=== PATIENT | female | born 1935 | race Caucasian/White ===

== ENCOUNTER 2016-09-18 21:38 | Emergency (ER) | payer MEDICARE ==
[~2016-09-18] VITALS: Ht 170.2 cm; Wt 57.6 kg
[~2016-09-18 21:38] MED LIST: ACID REDUCER20 MG PO; ALBUTEROL1.25 MG/3 INH; ALL DAY ALLERGY10 M3 PO; CEPHALEXIN500 MG PO; CIPRO500 MG PO; DITROPAN XL10 MG PO; DOXYCYCLINE HY100 M3 PO; DURAGESIC1 EAC4 TD; FAMOTIDINE10 MG PO; FLOMAX0.4 MG PO; MACROBID 100 M100 MG PO; NEXIUM20 MG PO; OMEPRAZOLE20 MG PO; OXYCODON-ACETA1 EAC2 PO; SYNTHROID112 MCG PO; SYNTHROID25 MCG PO; TUMS200 MG PO; ULTRAM50 MG PO; VITAMIN D5000 UNI1 PO; ZANTAC150 MG PO; [UNRECOGNIZED DRUG - OTHER]
[2016-09-18] MEDS ORDERED: OMEPRAZOLE20 MG PO (21:52)
[2016-09-18] MEDS ORDERED: VITAMIN D1000 UNI1 PO (21:53)
--- NOTE | 2016-09-19 14:37 | EKG ---
[facility] [address] [place] [address] Signed Normal sinus rhythm Possible Inferior infarct (cited on or before 20-JUL-2016) Cannot rule out Anterior infarct , age undetermined Abnormal ECG When compared with ECG of 20-JUL-2016 14:42, Minimal criteria for Anterior infarct are now present Confirmed by DIAMOND SANTIAGO MD ([id number]) on 09/19/2016 2:37:03 PM Electronically Signed By: DIAMOND SANTIAGO MD 09/19/16 1437 PATIENT NAME: CASI CHAPMAN Electrocardiogram DATE OF : 39 PHYSICIAN: DIAMOND SANTIAGO MD REPORT #: [id number] REPORT IS CONFIDENTIAL AND NOT TO BE RELEASED WITHOUT AUTHORIZATION
== END 2016-09-18 23:16 | disposition home or self-care (01) ==
LOC: ED 21:38
DX: C78.00 Secondary malignant neoplasm of unspecified lung (principal); Z85.3 Personal history of malignant neoplasm of breast; Z87.891 Personal history of nicotine dependence; Z90.11 Acquired absence of right breast and nipple; Z90.710 Acquired absence of both cervix and uterus; Z88.2 Allergy status to sulfonamides; Z79.899 Other long term (current) drug therapy
CPT/HCPCS: 71010; 80053; 83735; 84484; 85025; 93005; 93010; 94640; 99284

== ENCOUNTER 2016-10-01 13:29 | Emergency (ER) | payer MEDICARE ==
[~2016-10-01] VITALS: Ht 170.2 cm; Wt 57.1 kg
[~2016-10-01 13:29] MED LIST changes: +VITAMIN D1000 UNI1 PO
[2016-10-01] MEDS ORDERED: XANAX0.25 MG PO (14:57)
--- NOTE | 2016-10-02 14:23 | EKG ---
[facility] [address] [facility] [place] [address] Signed Sinus rhythm with premature supraventricular complexes Inferior infarct (cited on or before 20-JUL-2016) Anterolateral infarct (cited on or before 20-JUL-2016) Abnormal ECG When compared with ECG of 18-SEP-2016 21:57, premature supraventricular complexes are now present Confirmed by DIAMOND SANTIAGO MD ([id number]) on 10/02/2016 2:23:47 PM Electronically Signed By: DIAMOND SANTIAGO MD 10/02/16 1423 PATIENT NAME: CASI CHAPMAN Electrocardiogram DATE OF : 39 PHYSICIAN: DIAMOND SANTIAGO MD REPORT #: [id number] REPORT IS CONFIDENTIAL AND NOT TO BE RELEASED WITHOUT AUTHORIZATION
== END 2016-10-01 15:09 | disposition home or self-care (01) ==
LOC: ED 13:29
DX: R07.2 Precordial pain (principal); F41.9 Anxiety disorder, unspecified; Z88.2 Allergy status to sulfonamides; Z85.3 Personal history of malignant neoplasm of breast; Z85.118 Personal history of other malignant neoplasm of bronchus and lung; Z87.891 Personal history of nicotine dependence; Z90.710 Acquired absence of both cervix and uterus; Z90.11 Acquired absence of right breast and nipple; Z79.899 Other long term (current) drug therapy
CPT/HCPCS: 71010; 80048; 84484; 85025; 93005; 93010; 96374; 96375; 99284; J2405

== ENCOUNTER 2016-10-21 13:53 | Emergency (ER) | payer MEDICARE ==
[~2016-10-21] VITALS: Ht 170.2 cm; Wt 56.2 kg
[~2016-10-21 13:53] MED LIST changes: +XANAX0.25 MG PO
[2016-10-21] MEDS ORDERED: PREDNISONE20 MG PO (16:17)
--- NOTE | 2016-10-21 20:23 | EKG ---
[facility] [address] [place] [address] Signed Normal sinus rhythm Possible Inferior infarct (cited on or before 20-JUL-2016) Anterior infarct (cited on or before 18-SEP-2016) Abnormal ECG When compared with ECG of 01-OCT-2016 13:41, premature supraventricular complexes are no longer present Confirmed by ANUP GUILLAUME MD ([id number]) on 10/21/2016 8:23:28 PM Electronically Signed By: ANUP GUILLAUME MD 10/21/162022 PATIENT NAME: CASI CHAPMAN Electrocardiogram DATE OF : 39 PHYSICIAN: ANUP GUILLAUME MD REPORT #: [id number] REPORT IS CONFIDENTIAL AND NOT TO BE RELEASED WITHOUT AUTHORIZATION
== END 2016-10-21 16:26 | disposition home or self-care (01) ==
LOC: ED 13:53
DX: J44.1 Chronic obstructive pulmonary disease with (acute) exacerbation (principal); C50.919 Malignant neoplasm of unspecified site of unspecified female breast; C34.90 Malignant neoplasm of unspecified part of unspecified bronchus or lung; Z87.891 Personal history of nicotine dependence; Z90.710 Acquired absence of both cervix and uterus; Z88.2 Allergy status to sulfonamides; Z79.899 Other long term (current) drug therapy
CPT/HCPCS: 71020; 80053; 83735; 84484; 85025; 93005; 93010; 94640; 96374; 99284; J2930

== ENCOUNTER 2016-10-30 07:33 | Emergency (ER) | payer MEDICARE ==
[~2016-10-30] VITALS: Ht 170.2 cm; Wt 54.0 kg
[~2016-10-30 07:33] MED LIST changes: +PREDNISONE20 MG PO
[2016-10-30] MEDS ORDERED: NORCO 7.5-3251 EACH PO (08:39)
== END 2016-10-30 09:28 | disposition home or self-care (01) ==
LOC: ED 07:33
DX: C34.90 Malignant neoplasm of unspecified part of unspecified bronchus or lung (principal); C79.9 Secondary malignant neoplasm of unspecified site; C50.919 Malignant neoplasm of unspecified site of unspecified female breast; G89.3 Neoplasm related pain (acute) (chronic); Z87.891 Personal history of nicotine dependence; Z90.710 Acquired absence of both cervix and uterus; Z88.2 Allergy status to sulfonamides; Z79.899 Other long term (current) drug therapy; Z79.52 Long term (current) use of systemic steroids
CPT/HCPCS: 71020; 96374; 99283; J1170; J7030

== ENCOUNTER 2016-11-06 18:55 | Emergency (ER) | payer MEDICARE ==
[~2016-11-06] VITALS: Ht 170.2 cm; Wt 54.0 kg
[~2016-11-06 18:55] MED LIST changes: +NORCO 7.5-3251 EACH PO
== END 2016-11-06 22:11 | disposition home or self-care (01) ==
LOC: ED 18:55
DX: K59.00 Constipation, unspecified (principal); C50.919 Malignant neoplasm of unspecified site of unspecified female breast; C34.90 Malignant neoplasm of unspecified part of unspecified bronchus or lung; Z87.891 Personal history of nicotine dependence; Z88.2 Allergy status to sulfonamides; Z79.891 Long term (current) use of opiate analgesic; Z79.899 Other long term (current) drug therapy
CPT/HCPCS: 74177; 80053; 81001; 83690; 85025; 96374; 96375; 99284; J1170; J2405; Q9967

== ENCOUNTER 2016-11-15 19:09 | Emergency (ER) | payer MEDICARE ==
[~2016-11-15] VITALS: Ht 170.2 cm; Wt 54.0 kg
[2016-11-15] MEDS ORDERED: STOOL SOFTENER100 M1 PO (19:20)
[2016-11-15] MEDS ORDERED: MEDROL4 M1 PO (21:17)
--- NOTE | 2016-11-17 17:18 | EKG ---
[facility] [address] [facility] [place] [address] Signed Normal sinus rhythm Anterior infarct (cited on or before 18-SEP-2016) Abnormal ECG When compared with ECG of 21-OCT-2016 14:03, No significant change was found Confirmed by DIAMOND ASNTIAGO MD ([id number]) on 11/17/2016 5:18:10 PM Electronically Signed By: DIAMOND SANTIAGO MD 11/17/16 1718 PATIENT NAME: CASI CHAPMAN Electrocardiogram DATE OF : 39 PHYSICIAN: DIAMOND SANTIAGO MD REPORT #: [id number] REPORT IS CONFIDENTIAL AND NOT TO BE RELEASED WITHOUT AUTHORIZATION
== END 2016-11-15 21:19 | disposition home or self-care (01) ==
LOC: ED 19:09
DX: C34.90 Malignant neoplasm of unspecified part of unspecified bronchus or lung (principal); C79.9 Secondary malignant neoplasm of unspecified site; Z85.3 Personal history of malignant neoplasm of breast; Z87.891 Personal history of nicotine dependence; Z90.710 Acquired absence of both cervix and uterus; Z90.11 Acquired absence of right breast and nipple; Z88.2 Allergy status to sulfonamides; Z79.899 Other long term (current) drug therapy
CPT/HCPCS: 71010; 80053; 83880; 84484; 85025; 93005; 93010; 94640; 96374; 99284; J2930

== ENCOUNTER 2016-11-29 07:47 | Emergency (ER) | payer MEDICARE ==
[~2016-11-29] VITALS: Ht 170.2 cm; Wt 53.1 kg
[~2016-11-29 07:47] MED LIST changes: +MEDROL4 M1 PO; +STOOL SOFTENER100 M1 PO
[2016-11-29] MEDS ORDERED: NORCO 7.5-3251 EACH PO (09:38)
[2016-11-29] MEDS ORDERED: IPRATROPIU0.2 MG/1 M INH (09:38)
--- NOTE | 2016-11-30 21:47 | EKG ---
[facility] [address] [facility] [place] [address] Signed Normal sinus rhythm Anterior infarct (cited on or before 18-SEP-2016) Abnormal ECG When compared with ECG of 15-NOV-2016 19:49, No significant change was found Confirmed by DIAMOND SANTIAGO MD ([id number]) on 11/30/2016 9:47:10 PM Electronically Signed By: DIAMOND SANTIAGO MD 11/30/16 2147 PATIENT NAME: CASI CHAPMAN Electrocardiogram DATE OF : 39 PHYSICIAN: DIAMOND SANTIAGO MD REPORT #: [id number] REPORT IS CONFIDENTIAL AND NOT TO BE RELEASED WITHOUT AUTHORIZATION
== END 2016-11-29 10:07 | disposition home or self-care (01) ==
LOC: ED 07:47
DX: R07.9 Chest pain, unspecified (principal); C34.90 Malignant neoplasm of unspecified part of unspecified bronchus or lung; Z76.0 Encounter for issue of repeat prescription; Z85.3 Personal history of malignant neoplasm of breast; Z90.11 Acquired absence of right breast and nipple; Z90.710 Acquired absence of both cervix and uterus; Z88.2 Allergy status to sulfonamides; Z98.890 Other specified postprocedural states; Z79.899 Other long term (current) drug therapy
CPT/HCPCS: 71010; 80053; 83880; 84484; 85025; 85610; 85730; 93005; 93010; 96374; 96375; 99284; J2270; J2405

== ENCOUNTER 2016-12-01 19:43 | Observation (INO) | payer MEDICARE ==
[~2016-12-01] VITALS: Ht 170.2 cm; Wt 55.9 kg
[~2016-12-01 19:43] MED LIST changes: +IPRATROPIU0.2 MG/1 M INH
--- NOTE | 2016-12-01 23:30 | NUR ---
81YR OLD WOMAN ADMITTED FROM ER VIA STRETCHER TO ROOM 119. PT IS ALERT, ORIENTED, ABLE TO SLIDE OVER ONTO BED WITH MINIMAL ASSIST. HOB UP 30 DEG FOR PT COMFORT, O2 2L/NC, SOB WITH MINIMAL EXHERTION, ORIENTED TO ROOM AND CALL LIGHT, WARM BLANKET FOR COMFORT. RATES PAIN 2/10 ATHTIS TIME. DENIES FURTHER NEEDS. ORDERS NOTED.
--- NOTE | 2016-12-02 01:00 | NUR ---
COMPLETED LR BOLUS. LR INFUSING @ 75ML/HR. SCHEDULED MEDS GIVEN. SBA INTO BATHROOM TO VOID 400ML DARK YELLOW URINE. RT IN AND GAVE NEB TREATMENT. PT RESTING QUIETLY IN BED NOW, CONT. TO BE SOB WITH EXHERTION, INSPIRATORY WHEEZES BILATERAL. CALL LIGHT IN EASY REACH. DENIES FURTHER NEEDS.
--- NOTE | 2016-12-02 03:18 | NUR ---
RESTING QUIETLY, RESP UNLABORED. O2 2L/NC. IVF PATENT. CALL LIGHT IN EASY REACH.
--- NOTE | 2016-12-02 05:06 | NUR ---
AWAKE USED CALL LIGHT FOR ASSISTANCE INTO BATHROOM TO VOID, CONT. TO BE SOB WITH EXERTION. RT IN TO GIVE NEB TREATMENT. IVF PATENT. CALL LIGHT IN EASY REACH. DENIES NAUSE OR NEED FOR PAIN MEDICATION.
--- NOTE | 2016-12-02 06:22 | NUR ---
PT AWAKE EARLY ASKING FOR A CUP OF COFFEE, AM CARES DONE WITH ASSISTANCE, SBA WITH O2 TO AMBULATE TO BATHROOM. SOB WITH MINIMAL EXHERTION, SLOW TO RECOVER. 02 2L/NC, PT CONT. TO DENY PAIN SINCE ADMISSION. FEELS BETTER AFTER NEBS BY RT. USING CALL LIGHT APPROP. PLEASANT LADY.
--- NOTE | 2016-12-02 06:33 | NUR ---
BREAKFAST ORDER TAKEN FROM PATIENT AND PLACED WITH KITCHEN.
--- NOTE | 2016-12-02 08:00 | NUR ---
PATIENT DRINKING MIRALAX, AAOX3. NO COMPLAINTS OF PAIN AT THIS TIME. FULL BODY ASSESMENT DONE. LUNG SOUNDS COURSE THROUGHOUT, PATIENT NOW GETTING NEB TX. COMPLAINTS OF FEELING ANXIOUS SECONDARY NOT BEING ABLE TO HAVE A BOWEL MOVEMENT. DISCUSSED POC WITH PATIENT, VERBALIZED UNDERSTANDING.
--- NOTE | 2016-12-02 10:00 | NUR ---
ASSISTED DR. SANTIAGO WITH BOWEL CARE. PATIENT IMPACTED. DISIMPACTION DIGITALLY PERFORMED AND ENEMA ADMINISTERED. BOWEL MOVEMENT NOTED. TOLERATING TREATMENT WELL.
[2016-12-02] MEDS ORDERED: XANAX0.25 MG PO (10:45)
[2016-12-02] MEDS ORDERED: IPRATROPIU0.2 MG/1 M INH (10:49)
[2016-12-02] MEDS ORDERED: IPRAT-ALBUT 0.5-3 ML INH (10:49)
--- NOTE | 2016-12-02 10:51 | NUR ---
MED REC COMPLETE WITH [facility] REFILL HISTORY.
[2016-12-02] MEDS ORDERED: MIRALAX17 GM PO (10:56)
[2016-12-02] MEDS ORDERED: SENOKOT8.6 MG PO (10:57)
[2016-12-02] MEDS ORDERED: MORPHINE S20 MG/5 ML PO (10:59)
--- NOTE | 2016-12-02 11:00 | NUR ---
PATIENT HAS HAD TWO BOWEL MOVMENTS SINCE SHE STARTED DRINKING BOWEL PREP. UP TO BSC, TOLERATED ACTIVITY. NOW REQUESTING MEDICATION FOR ANXIETY. NEW ORDER PER DR. SANTIAGO
--- NOTE | 2016-12-02 13:48 | NUR ---
PT SITTING IN BED WITH NASAL O2. SHE SHOOK MY HAND AND BEGAN TO TELL ME THAT SHE IS DYING-BUT THERE ARE SOME THINGS ON HER "BUCKET LIST" SHE STILL NEEDS TO ACCOMPLISH. SO SHE HAS DECIDED TO KEEP TAKING CHEMO TO BUY HERSELF MAYBE SOME MORE TIME. SHE WILL ALSO USE HOME HEALATH TO COME TO HER HOUSE TO HELP. SAID SHE WILL TALK ABOUT HOSPICE LATER-NOT YET. PT ALLOWED ME TO PRAY FOR AND WITH HER. SHE THANKED ME WITH A SMILE-SHE IS AT [facility]. SHE SAID SHE KNOWS THE GOOD LORD IS GETTING READY TO TAKE HER TO BE WITH HIM-BUT NOT QUITE YET. WILL CONTINUE TO FOLLOW
--- NOTE | 2016-12-02 16:00 | NUR ---
PATIENT VOIDING WELL, HAS HAD 2 BOWEL MOVEMENTS. NO COMPLAINTS OF PAIN. WOB HARD, APPEARS TO HAVE INCREASED ANXIETY WITH EXERTION. DISCUSSED WITH DR. SANTIAGO, WILL HAVE HOME HEALTH TO EVALUATE WHEN DISCHARGES HOME. PLAN TO DISCHARGE THIS EVENING.
--- NOTE | 2016-12-02 19:12 | EKG ---
[facility] [address] [facility] [place] [address] Signed Sinus tachycardia Anterior infarct (cited on or before 18-SEP-2016) Abnormal ECG When compared with ECG of 29-NOV-2016 07:55, No significant change was found Confirmed by DIAMOND SANTIAGO MD ([id number]) on 12/02/2016 7:12:12 PM Electronically Signed By: DIAMOND SANTIAGO MD 12/02/16 191 PATIENT NAME: CASI CHAPMAN Electrocardiogram DATE OF : 39 PHYSICIAN: DIAMOND SANTIAGO MD REPORT #: [id number] REPORT IS CONFIDENTIAL AND NOT TO BE RELEASED WITHOUT AUTHORIZATION
--- NOTE | 2016-12-02 20:40 | NUR ---
PROVIDED DISHARGE INSTRUCTION TO PATIENT, ANSWERED QUESTIONS AND CONCERNS. PATIENT UP TO BATHROOM, HAD ANOTHER SMALL BOWEL MOVEMENT. TOOK SCRIPT TO PHARMACY TO BE FILLED. PATIENT NOW RECIEVING BREATHING TX. VS STABLE.
== END 2016-12-02 19:00 | disposition home health service (06) ==
LOC: ED 19:43 → MS 19:45
PROVIDERS: ADMIT Internal Medicine
DX: J96.01 Acute respiratory failure with hypoxia (principal); C34.90 Malignant neoplasm of unspecified part of unspecified bronchus or lung; C77.9 Secondary and unspecified malignant neoplasm of lymph node, unspecified; C78.7 Secondary malignant neoplasm of liver and intrahepatic bile duct; C79.51 Secondary malignant neoplasm of bone; E03.9 Hypothyroidism, unspecified; E86.0 Dehydration; K59.00 Constipation, unspecified; J44.9 Chronic obstructive pulmonary disease, unspecified; K21.9 Gastro-esophageal reflux disease without esophagitis; L89.151 Pressure ulcer of sacral region, stage 1; Z85.3 Personal history of malignant neoplasm of breast; Z87.891 Personal history of nicotine dependence; Z88.2 Allergy status to sulfonamides; Z99.81 Dependence on supplemental oxygen; Z79.891 Long term (current) use of opiate analgesic; Z79.899 Other long term (current) drug therapy
CPT/HCPCS: 36600; 71010; 71260; 80053; 82803; 83735; 84484; 85025; 93005; 93010; 94640; 96372; 96374; 99285; G0378; J1650; J2930; J7120; Q9967

== ENCOUNTER 2016-12-04 11:45 | Emergency (ER) | payer MEDICARE ==
[~2016-12-04] VITALS: Ht 170.2 cm; Wt 55.8 kg
[~2016-12-04 11:45] MED LIST changes: +IPRAT-ALBUT 0.5-3 ML INH; +MIRALAX17 GM PO; +MORPHINE S20 MG/5 ML PO; +SENOKOT8.6 MG PO
[2016-12-05] MEDS ORDERED: ATIVAN1 MG PO (22:34)
== END 2016-12-04 13:20 | disposition home or self-care (01) ==
LOC: ED 11:45
DX: R09.89 Other specified symptoms and signs involving the circulatory and respiratory systems (principal); C34.90 Malignant neoplasm of unspecified part of unspecified bronchus or lung; C79.89 Secondary malignant neoplasm of other specified sites; C50.919 Malignant neoplasm of unspecified site of unspecified female breast; Z87.891 Personal history of nicotine dependence; Z90.710 Acquired absence of both cervix and uterus; Z88.2 Allergy status to sulfonamides; Z79.899 Other long term (current) drug therapy; Z90.11 Acquired absence of right breast and nipple
CPT/HCPCS: 71010; 80053; 83735; 84484; 85025; 96374; 96375; 99284; J1610; J2270; J2765

== ENCOUNTER 2016-12-05 21:01 | Emergency (ER) | payer MEDICARE ==
[~2016-12-05] VITALS: Ht 170.2 cm; Wt 55.8 kg
[2016-12-05] MEDS ORDERED: ATIVAN1 MG PO (22:34)
== END 2016-12-05 22:51 | disposition home or self-care (01) ==
LOC: ED 21:01
DX: R06.02 Shortness of breath (principal); Z85.3 Personal history of malignant neoplasm of breast; Z85.118 Personal history of other malignant neoplasm of bronchus and lung; Z90.11 Acquired absence of right breast and nipple; Z87.891 Personal history of nicotine dependence; Z88.2 Allergy status to sulfonamides; Z79.899 Other long term (current) drug therapy; Z98.890 Other specified postprocedural states
CPT/HCPCS: 99283

== ENCOUNTER 2016-12-10 13:57 | Inpatient (IN) | payer MEDICARE ==
[~2016-12-10] VITALS: Ht 170.2 cm; Wt 54.4 kg
[~2016-12-10 13:57] MED LIST changes: +ATIVAN1 MG PO
--- NOTE | 2016-12-10 17:42 | NUR ---
PT TO ROOM 122 FROM ED. ADMISSION COMPLETED.
--- NOTE | 2016-12-10 19:05 | NUR ---
SHIFT REPORT RECIEVED. PATIENT EATING DINNER IN BED WITH FAMILY IN THE ROOM. PATIENT COMPLAINED OF SORE THROAT. AGREED TO TRYING SOME WARM TEA WITH HONEY TO SOOTHE SORENESS. SCHOOL INSPECTOR AGREE TO GET PATIENT THE TEA. WILL REASSESS NEED FOR FURTHER INTERVENTION. PATIENT AWARE. CALL LIGHT IN REACH.
--- NOTE | 2016-12-10 20:02 | NUR ---
PATIENT COMPLAINS OF SORE THROAT AND IS REQUESTING "COUGH DROPS". PLACED CALL TO HOSPITALIST TO REQUEST LOZENGES. NEW ORDER GIVEN BY HOSPITALIST. VERIFIED NEW ORDER USING THE READBACK METHOD. WILL PUT NEW ORDER INTO PLACE.
--- NOTE | 2016-12-10 20:50 | NUR ---
PATIENT RESTING EYES CLOSED. RR 18. PULSE OX 95%, 5L NC W/CANULA AIMED IN MOUTH RESTING ON BOTTOM LIP. LUNG SOUNDS ARE COARSE THROUGOUT. PATIENT DID NOT WAKE DURING FOCUSED ASSESSMENT. IN ROOM. WILL REASSESS.
--- NOTE | 2016-12-10 22:30 | NUR ---
PATIENT RESTING, EYES CLOSED, RR 16. PULSE OX 96%. 5L NC, CANULA AIMED IN MOUTH. BREATHING NONLABORED. LUNG SOUNDS COUARSE THROUGHOUT. MILLER IN PLACE. DRAINING YELLOW URINE. AT BEDSIDE. ASKED HIM TO ALERT STAFF IF PATIENT WAKES TO ALLOW FURTHER ASSESSMENT IN HOW SHE IS FEELING. AGREES. CALL LIGHT WITHIN REACH.
--- NOTE | 2016-12-11 00:32 | NUR ---
PATIENT RESTING IN BED. EYES CLOSED. RR 18, PULSE OX 96% ON 5L NC. NASAL CANULA AIMED INTO PATIENT MOUTH. BREATHING IS SLIGHTLY LABIRED, PATIENT SNORING. LUNG SOUNDS COARSE THROUGHOUT. AT BEDSIDE RESTING IN RECLINER. MILLER DRAINING CLEAR YELLOW URINE. CALL LIGHT IN REACH.
--- NOTE | 2016-12-11 02:35 | NUR ---
PATIENT AWAKE. ALERTED STAFF TO NEEDS FOR WATER AND PRN MEDS FOR SORE THROAT. PATIENT DENIES PAIN AT THIS TIME. IS AAOX3. AT BEDSIDE. PATIENT REPORTS BEING SHORT OF BREATH. RT CONTACTED TO ASSESS PATIENT. WHEEZE HEARD UPON INSPIRATION AND CRAKLES ON EXPIRATION THROUGHOUT. PULSE OX 95% ON 5L NC. BREATHING IS LABORED, USING ASSESSORY MUSCLES, RR 22. MILLER DRAINING CLEAR YELLOW URINE. OUTPUT QS. PATIENT GIVEN PRN MEDS FOR SORE THROAT AND WATER. REPORT RELIEF WITHIN A COUPLE MINS. IVF INFUSING, SITE WNL.
--- NOTE | 2016-12-11 03:00 | NUR ---
PATIENT RESTING IN BED WATCHING TV. AT BEDSIDE. PATIENT DENIES PAIN. PATIENT REQUESTING PRN NEB TREATMENT, NEB GIVEN BY RT. PATIENT REPORTS IMPROVED EASE OF BREATHING AFTER NEB. NO FURTHER REQUEST AT THIS TIME. CALL LIGHT IN REACH.
--- NOTE | 2016-12-11 05:06 | NUR ---
PATIENT ALERTED STAFF TO INCREASED SOB. PATIENT REQUEST PRN MEDS FOR ANXIETY. MEDS GIVEN PER ORDER. PATIENT AGREED TO USE FACE MASK. PATIENT IS MOUTH BREATHER. O2 88% ON 5L NC. SWITCHED TO OXIMASK AND TITRATED TO 6L. O2 UP TO 94%. WILL REASSESS. PATIENT REPORTS SOB IMPROVED SLIGHTLY. CALL LIGHT IN REACH.
--- NOTE | 2016-12-11 05:34 | NUR ---
PATIENT REQUEST TO BE PUT BACK ON NC, DOES NOT LIKE THE WAY THE OXIMASK FEELS. PATIENT COMPLAINS OF DRY THROUGHT THAT IS SORE. CALLED RT TO PUT PATIENT ON HUMIDIFIED O2. PATIENT IS NOW ON HUMIDIFIED O2 AT 3.5L NC. PULSE OX, 95%. PATIENT FEELS LESS SOB. RESTING IN BED WATCHING TV. GIVEN WARM TEA WITH HONEY PER REQUEST. NO FURTHER NEEDS AT THIS TIME. LUNG SOUNDS CONTINUE TO HAVE INSPITORY WHEEZES AND COARSE ON EXPIRATION.
--- NOTE | 2016-12-11 05:36 | NUR ---
PATIENT RESTED WELL THROUGHOUT SHIFT. EARLY IN THE AM THE PATIENT WOKE UP SOB, REQUESTING BREATHING TREATMENTS. RT ASSESSED PT AND PROVIDED NEBS. HAS BEEN AT BEDSIDE ALL NIGHT. PATIENT LUNG SOUNDS ARE INSPIRTORY WHEEZES AND COARSE ON EXPIRATION. PATIENT RECIEVED PRN MORPHINE AND ATIVAN X1. IVF INFUSING. IV SITES X2, WNL. MILLER IN PLACE, OUTPUT QS. PULSE OX 02 90-96%. PATIENT TITRATED UP TO 5L NC W/CANULA IN PATIENT MOUTH WHEN SLEEPING. TITRATED DOWN TO 3.5L NC W/HUMIDIFIED O2.
--- NOTE | 2016-12-11 05:51 | NUR ---
PATIENT REPORTS SOB, RT CALLED. PRN NEB TREATMENT GIVEN. WILL CONTINUE TO MONITOR.
--- NOTE | 2016-12-11 06:11 | NUR ---
CONTACTED TO DISCUSS PATIENTS INCREASED SOB. NEW ORDERS RECIEVED. VERIFIED USING READ BACK METHOD. ORDER INPUT.
--- NOTE | 2016-12-11 06:13 | NUR ---
PATIENT RESTING, EYES CLOSED. RR 18. PULSE OX, 94%. 3.5L NC. CALL LIGHT IN REACH.
--- NOTE | 2016-12-11 06:50 | NUR ---
PATIENT WATCHING TV, RESTING IN BED. SOB HAS IMPROVED. O2 96% ON 3.5L NC. PATIENT DRINKING WARM TEA, SORE THROAT IMPROVED. PATIENT DENIES FURTHER NEEDS AT THIS TIME. CALL LIGHT IN REACH.
--- NOTE | 2016-12-11 07:08 | NUR ---
REPORT FROM KALPESH NAQVI
--- NOTE | 2016-12-11 07:51 | NUR ---
PT CARE ASSUMED. PT RESTING IN BED. WORK OF BREATHING INCREASING GIVEN PRN MORPHINE.
--- NOTE | 2016-12-11 08:34 | NUR ---
PT IS SITTIG UP IN BED VISITING WITH CAREGIVER, CALL LIGHT IN REACH. ORDERED PT A TRAY FOR BREAKFAST. PT DID NOT NEED ANYTHING ELSE AT THE MOMENT
--- NOTE | 2016-12-11 09:25 | NUR ---
PT C/O HAVING AN ANXIETY ATTACK. MEDICATED WITH MORPINE AND ATIVAN. GIVEN FAN FOR COMFORT.
--- NOTE | 2016-12-11 10:34 | NUR ---
PT C/O ACID REFLUX. GIVEN MAALOX
[2016-12-11] MEDS ORDERED: LORAZEPAM INT2 MG/ML PO (11:49)
[2016-12-11] MEDS ORDERED: MIRALAX17 GM PO (11:50)
[2016-12-11] MEDS ORDERED: SENOKOT8.6 MG PO (11:50)
[2016-12-11] MEDS ORDERED: DOC-Q-LACE100 MG PO (11:51)
[2016-12-11] MEDS ORDERED: MUCINEX600 MG PO (11:52)
[2016-12-11] MEDS ORDERED: NORCO 7.5-3251 EACH PO (11:53)
--- NOTE | 2016-12-11 11:54 | NUR ---
MED REC COMPLETE
--- NOTE | 2016-12-11 13:04 | NUR ---
PT RESTING, APPEARS COMFORTABLE. NO SIGNS OF DISTRESS.
--- NOTE | 2016-12-11 14:40 | NUR ---
PT IS RESTING IN BED SAFELY WITH EYES CLOSED, REPSERATIONS EVEN AND CALL LIGHT IN REACH. PT WOKE UP FOR VITALS BUT THEN FELL BACK ASLEEP
--- NOTE | 2016-12-11 14:52 | NUR ---
PT APPEARS TO BE SLEEPING. RESPS EVEN. AT BEDSIDE.
--- NOTE | 2016-12-11 17:14 | NUR ---
PT EATING DINNER. REPORTS SORE THROAT. NO OTHER NEEDS AT THIS TIME.
--- NOTE | 2016-12-11 18:22 | NUR ---
PT IS SITTING UP IN BED WITH CALL LIGHT IN REACH. PT STATED SHE WAS VERY ANXIOUS AND PAINFUL, NURSE AWARE AND BRINGING MEDS. PT CHANGED HER MIND AND WOULD LIKE TO SHOWER LATER THIS EVENING WILL PASS ON TO TRUCK SALES REPRESENTATIVE.
--- NOTE | 2016-12-11 19:41 | NUR ---
RECEIVED REPORT FROM DAY SHIFT RN. PATIENT IS REQUESTING TO TAKE A SHOWER. PATIENT DENIES ANY PAIN OR SOB. PATIENT STATED "I WILL CALL WHEN I AM READY TO SHOWER" WILL FOLLOW UP WITH PATIENT ON THE NEED TO SHOWER. PATIENTS IS AT THE BEDSIDE. CALL LIGHT IN REACH.
--- NOTE | 2016-12-11 21:35 | NUR ---
PATIENT ASSESMENT COMPLETED. PATIENT REFUSES A SHOWER STATING "I AM JUST WORN OUT" EDUCATED PATIENT TO ALERT STAFF IF SHE CHANGES HER MIND. PATIENT AGREES. PATIENT DENIES ANY PAIN OR SOB AT THIS TIME. PATIENT HAS PULSE OX IN PLACE AND REMAINS ON 4L VIA NC. PATIENTS REMAINS AT THE BEDSIDE. PATIENT DENIES ANY NEEDS AT THIS TIME. CALL LIGHT IN REACH.
--- NOTE | 2016-12-11 23:27 | NUR ---
PATIENTS ALERTED STAFF THAT THE PUSLE OX WAS BEEPING. PULSE OX WAS NOT GETTING A GOOD READING. FIXED CONNECTION. PATIENTS PULSE OX READINGS ARE WNL. PATIENT DID NOT AWAKEN WHEN IN THE ROOM. PATIENTS RR IS 24. PATIENT REMAINS ON 4L VIA NC. PATIENTS GIVEN ICE WATER PER REQUEST. PATIENTS SEEMS ANXIOUS ABOUT WIFES CONDITION. REASSUSRED PATIENTS THAT WE ARE HERE FOR HIS AND HER NEEDS.
--- NOTE | 2016-12-12 01:23 | NUR ---
PATIENT CONTINUES TO REST IN BED WITH EYES CLOSED. PATIENT DID NOT AWAKEN WHEN ROOM WAS ENTERED. PATIENTS PULSE OX READINGS ARE WNL. PATIENT REMAINS ON 4L VIA NC. PATIENTS REMAINS AT BEDSIDE.
--- NOTE | 2016-12-12 03:37 | NUR ---
PATIENTS ALERTED STAFF THAT PATIENT HAD INCREASING SOB. PATIENT REQUESTED MORPHINE, ATIVAN, AND A NEB. PATIENT GIVEN PRN MORPHINE, ATIVAN AND A NEB TREATMENT. THEN AFTER 20 MINUTES PATIENT REMAINED ANXIOUS AND SOB. PATIENTS RR AT THIS TIME WAS 36. PLACED CALL TO HOSPITALIST. RECIEVED A NEW VERBAL ORDER. VERIFIED ORDER USING THE READBACK METHOD. PATIENT GIVEN ANOTHER ONE TIME DOSE OF MORPHINE PER MD ORDER. AFTER ANOTHER 20 MINUTES. PATIENT IS NOW RESTING WITH EYES CLOSED. PULSE OX READINGS ARE WNL. PATIENT TITRATED TO 5L VIA NC. PATIENTS DENIES ANY NEEDS AT THIS TIME. CALL LIGHT IN REACH. WILL CONTINUE TO MONITOR.
--- NOTE | 2016-12-12 05:03 | NUR ---
PATIENT RESTED FOR THE MAHORITY OF THE SHIFT. PATEINT RECEIVED PRN MORPHINE NEEDED FOR SOB. PATIENT ALSO RECEIVED PRN ANXIETY MEDICATION X2. PATIENT IS ON 4L VIA NC. PATIENT IS ON A REG DIET. PATIENT HAS MILLER IN PLACE AND URINE OUTPUT IS QS. PATIENT HAS PULSE OX IN PLACE. PATIENTS REMAINED AT THE BEDSIDE. PATIENT HAS NOT BEEN OUT OF BED.
--- NOTE | 2016-12-12 06:17 | NUR ---
PATIENT GIVEN PRN MORPHINE PER REQUEST. PATIENTS MORNING VITALS TAKEN. MILLER CARE PERFOMED. PATIENT DENIES ANY NEEDS AT THIS TIME. CALL LIGHTIN REACH. REMAINS AT THE BEDIDE.
--- NOTE | 2016-12-12 07:00 | NUR ---
REPORT RECV'D FROM NAYE NAQVI. PT SLEEPING, SLEEPING IN CHAIR AT BEDSIDE. O2 @ 5L, PULSE OX IN PLACE. MILLER IN PLACE. D51/2 NS @ 100 MLS INFUING. RESTRICTED EXTREMITY NOTED. NO FURTHER NEEDS AT THIS TIME. CALL LIGHT IN PLACE.
--- NOTE | 2016-12-12 07:58 | NUR ---
WENT TO DO PATIENT CARE ON PATIENT BUT SHE WAS ASLEEP, WILL CHECK BACK TO MAKE SURE SHE WAKES UP AND GETS BREAKFAST.
--- NOTE | 2016-12-12 09:00 | NUR ---
IN TO CHECK ON PT, AM MEDICATIONS GIVEN. PULSE OX IN PLACE. NO FURTHER NEEDS AT THIS TIME. AT BEDSIDE. CALL LIGHT IN REACH.
--- NOTE | 2016-12-12 10:42 | NUR ---
IN TO CHECK ON PT, PT SLEEPING. PULSE OX IN PLACE, O2 @ 93 ON 6L. PT AT BEDSIDE. NO FURTHER NEEDS AT THIS TIME.
--- NOTE | 2016-12-12 12:15 | NUR ---
IN TO SEE PT, PT SLEEPING. PT AWAKES EASILY TO VOICE. UPON WAKING PT FOR SCHEDULE PAIN MEDICATION PT BECAME ANXIOUS, TACHYCARDIC AND SOB. O2 DESTATUARTION TO 83 % ON 7 L NC. RT CALLED. PT GIVEN ATIVAN FOR ANXIETY. WHEN ASKED IF PT WOULD LIKE MS CONTIN DOSE, PT DECLINED. PRN NEB TREATMENT GIVEN BY RT.
--- NOTE | 2016-12-12 13:15 | NUR ---
IN TO CHECK ON PT, PT SLEEPING. PULSE OX AND O2 IN PLACE. IVF INFUSING. PER DISCUSSION WITH DR. GUILLAUME PT NOT DISTURBED. FRIEND AT BEDSIDE. CALL LIGHT IN REACH.
--- NOTE | 2016-12-12 14:15 | NUR ---
REPORT GIVEN TO PAULINA NAQVI. IN TO CHECK ON PT, PT SLEEPING. OFFERED SCHEDULED MS CONTIN OR OTHER PAIN MEDICATIONS. PT DECLINED AT THIS TIME. PT DENIES PAIN AT THIS TIME. FRIEND AT BEDSIDE. NO FURTHER NEEDS AT THIS TIME.
--- NOTE | 2016-12-12 14:36 | NUR ---
PATIENT WAS RESTING, SHE DIDNT EAT ANY LUNCH, I OFFERED A NUTRITION SHAKE SHE ACCEPTED WITH THE FLAVOR CHOCOLATE, I ALSO SIS ORAL CARE HER WOUTH WAS VERY DRY, SHE IS CURRENTLY RESTING AND TRYING TO DRINK THE SHAKE.
--- NOTE | 2016-12-12 14:49 | NUR ---
IN PT ROOM TO INTRODUCE TO PT AND . PT'S SPO2 67%, PHONED RT TO COME DO BREATHING TREATMENT. PT REQUESTING NEBULIZER. WILL CONTINUE TO MONITOR PT.
--- NOTE | 2016-12-12 15:13 | NUR ---
MILTON FROM RT IN FOR BREATHING TREATMENT FOR PT REQUESTED BY PT. ADMINISTERED PRN MORPHINE ELIXIR AND LORTAB ELIXER PER PT REQUEST FOR COMFORT. PT OXYGEN SATURATIONS BACK UP TO 94% AND DECREASING AFTER BREATHING TREAMENT TO 80% SPO2. AT THE BEDSIDE AND PTS FRIEND PRESENT IN ROOM. PTS REQUESTING TO VISIT WITH DR. GUILLAUME. DR. GUILLAUME PHONED AND SAID SHE IS ON HER WAY. PT AND DENY PASTORAL CARE OFFERED BY DONYA TRAVIS. WILL CONTINUE TO MONITOR.
--- NOTE | 2016-12-12 15:35 | NUR ---
DR. GUILLAUME IN TO VISIT WITH PT'S PER REQUEST. PLAN TO CONTINUE TO TREAT PNEUMONIA AND KEEP PT COMFORTABLE WITH PRN PAIN MEDICATIONS AVAILABLE.
--- NOTE | 2016-12-12 15:58 | NUR ---
ANSWERED CALL LIGHT, REMOVED ONE PULSE OXIMETER FROM PT'S FINGER HAD TWO. PT SPO2 82%, HR 102. PT'S AT BEDSIDE. BROUGHT AND PT FRESH ICE WATER, AND GAVE PT SWAB. PT HAD WET COUGH, EDUCATED ON SUCTION USE. PT USING SUCTION AT THIS TIME. PT WAS HOLDING IT IN HER MOUTH CONTINUOUSLY AND RN EXPLAINED TO USE FOR A FEW SECONDS AT A TIME IT CAN LOWER OXYGEN. WILL CONTINUE TO MONITOR.
--- NOTE | 2016-12-12 17:08 | NUR ---
IN PT ROOM TO ASSESS PT PAIN, ANXIETY FOR PRN MEDICATION ADMINISTRATION. PT ASLEEP, BREATHING WITH MOUTH OPEN. AT BEDSIDE. WILL CONTINUE TO MONITOR.
--- NOTE | 2016-12-12 17:22 | NUR ---
PT ASLEEP, SPO2 98%. AT BEDSIDE. PT DOES AROUSE TO VOICE. OFFERED MEDICATIONS AND PT IMMEDIATELY BACK TO SLEEP. INSTRUCTED PT'S TO USE CALL LIGHT, WHEN PT IS MORE AWAKE PRN MEDIATIONS CAN BE ADMINISTERED REQUESTED. IVF INFUSING AT 100 ML/HR. WILL CONTINUE TO MONITOR. DELIVERED FRESH ICE WATER TO . CALL LIGHT IN REACH.
--- NOTE | 2016-12-12 18:23 | NUR ---
PATIENT WAS RESTING WHILE I DID VITALS, I DID SOME ORAL CARE AND REPOSITIONED HER.
--- NOTE | 2016-12-12 18:46 | NUR ---
PATIENT HAS BEEN RESTING IN BED, MORPHINE AND LORTAB AND ATIVAN GIVEN PRN THROUGHOUT THE DAY. D5 1/2 NS + 20K INFUSING @ 100ML/HR. HAS BEEN AT PATIENT BEDSIDE ALL DAY. MILLER IN PLACE. PATIENT IS ON 5L O2 VIA NC. DR GUILLAUME WAS IN TO TALK TO FAMILY ABOUT HOSPICE AND COMFORT CARE. PATIENT SLEPT ON AND OFF THROUGHOUT THE SHIFT.
--- NOTE | 2016-12-12 19:50 | NUR ---
RECIEVED REPORT FROM DAY SHIFT NURSE. PT SITTING UP IN BED SLEEPING. SPOUSE AT BEDSIDE. NC IN PLACE AT 7L/MIN-O2 AT 95%. CONT. PULSE OX IN PLACE. IVF INFUSING W/O DIFFICUTLY. ICE WATER DELIVERED TO . DENIES NEEDS. CALL GOLDSMITH IN REACH.
--- NOTE | 2016-12-12 20:27 | NUR ---
PT SITTING UP IN BED. WARM BLANKETS APPLIED. AT BEDSIDE. ADMINISTERED ATIVAN AND MORPHINE PER PT AND REQUEST. PT STATES SHE IS COMFORTABLE AT THIS TIME. DENIES THE NEED TO BE REPOSITIONED. PULSE OX READING 85% ON 8L O2 VIA NC. SIP OF WATER ADMINISTERED WITH CRUSHED ATIVAN. PT DENIES FURTHER NEEDS. CALL GOLDSMITH IN REACH.
--- NOTE | 2016-12-12 20:49 | NUR ---
PT'S O2 SATS BACK UP TO 94% ON 7L/MIN. RT IN TO ASSESS PT.
--- NOTE | 2016-12-12 21:33 | NUR ---
PT AT BEDSIDE. REPLACED IV FLUIDIS. PT AND HAS NO COMPLAINTS
--- NOTE | 2016-12-12 22:12 | NUR ---
PT SLEEPING. SPOUSE AT BEDSIDE. CONT PULSE OX MOVED TO BRIDGE OF NOSE. O2 IN LOW 90S. HR IN 90S. IVF INFUSING W/O DIFFICULTY. CALL GOLDSMITH IN REACH.
--- NOTE | 2016-12-13 | NUR ---
PT REQUESTING FOR NEB TX. PULSE OX PROBE FELL OFF NOSE. CALLED RT TO REPLACE ON NARE. RT IN ADMINISTERING NEB. MORPHINE AND ATIVAN ADMINISTERED. CALL GOLDSMITH IN REACH.
--- NOTE | 2016-12-13 01:05 | NUR ---
PT RESTING IN BED WITH SPOUSE AT BEDSIDE. STATES SHE WOULD LIKE ANOTHER NEB TX HOWEVER SHE IS UNABLE TO HAVE ONE FOR ANOTHER HOUR. PT IS NOT IN ACUTE RESP DISTRESS. SATS ARE AROUND 92%. PULSE OX IN PLACE ON FOREHEAD. PT STATES SHE IS ABLE TO WAIT AN HOUR FOR ANOTHER TX. CALL GOLDSMITH IN REACH.
--- NOTE | 2016-12-13 03:33 | NUR ---
PT FOUND WITH NC OFF, SATS IN 60S/70S. NC BACK IN PLACE. RR 30. O2 SLOWLY CLIMBING. O2 AT THIS TIME 85%. WILL MONITOR. CALL GOLDSMITH IN REACH.
--- NOTE | 2016-12-13 05:26 | NUR ---
MORPHINE AND ATIVAN ADMINISTERED PER PT REQUEST. CHANGED SHEET UNDER PT BECAUSE IT WAS WET. OPTIFOAM TO SACRUM INTACT. CALL GOLDSMITH IN REACH.
--- NOTE | 2016-12-13 07:53 | NUR ---
PATIENT SLEEPING UPON ENTERING ROOM FOR BEDSIDE REPORT. ASLEEP IN CHAIR NEXT TO BED. SUPPOSITORY MOLDING MACHINE OPERATOR RN REPORTED SWALLOW ISSUES. WILL ASK FOR SWALLOW EVAL FROM MD. IVF INFUSING @ 100. MILLER IN PLACE. 7L 02 HIGH FLOW NC IN PLACE.
--- NOTE | 2016-12-13 08:15 | NUR ---
patient sitting up in bed with in room. gave her a swab to wet mouth. washed hands and face with wash cloth. RN would like to wait for her to eat so she can have a swallow eval. patient asked for breathing meds. RN notified. call button in reach.
--- NOTE | 2016-12-13 10:00 | NUR ---
Diannt sitting up in bed. washed face and hands. process planner in with patient and talking about care plan. will return for bath.
--- NOTE | 2016-12-13 10:47 | NUR ---
speech therapist evaluating patient now
--- NOTE | 2016-12-13 12:54 | NUR ---
PT'S CONDITION DETERIORIATING, BUT AWARE ENOUGH TO CARRY ON A CONVERSATION WITH ME. DISCUSSION TAKING PLACE TO HAVE HER BECOME IN [facility] TO HELP HER WITH CARE. SHE HELD MY HAND, SAID SHE HADN'T FINISHED THE 2 THINGS ON HER BUCKET LIST YET THAT SHE MENTIONED TO ME EARLIER. SHE IS STILL TRYING TO ACCOMPLISH THOSE, WHATEVER THEY ARE. HAD PRAYER WITH PT-SHE SMILED AND THANKED ME FOR COMING IN. WILL FOLLOW NEEDED
--- NOTE | 2016-12-13 13:08 | NUR ---
float patient with one pillow under each hip. cam cath care done. face and hands washed again. oral care done. patient requested neb treatment. patient took NC off. I put it back on. RN notified and RT called. call button in reach. warm blanket. clean gown. no other needs at this time.
--- NOTE | 2016-12-13 13:17 | NUR ---
pt reports SOB. o2 sats 79% on 7L high flow o2 via NC. resp therapy called. neb tx given now. sublingual morphine given.
--- NOTE | 2016-12-13 14:30 | NUR ---
CAME UP TO NURSES STATION LOOKING FOR ME AND WANTS TO KNOW WHAT THEY NEED TO DO TO GET IT SO CASI CAN GO HOME TOMORROW ON HOSPICE. I CALLED HOSPICE AND SPOKE WITH KATHY WHO CAME DOWN DIRECTLY AND WE HAD A VISIT WITH THE PT AND SPOUSE ABOUT HOSPICE AND THE PT EXPRESSED MULTIPLE TIMES THAT YES SHE WAS READY FOR HOSPICE AND SHE UNDERSTANDS THIS MEANS NO MORE TRIPS TO THE HOSPITAL OR TO HAVE CHEMO FOR PALLITIVE CARE. PT STATES SHE UNDERSTANDS THIS AND WISHES TO GO ON TO HOSPICE. INFORMED DR GUILLAUME OF THEIR DECISION.
--- NOTE | 2016-12-13 17:28 | NUR ---
BEDREST. TURN Q2H. 7L 02 VIA Kale[employer]. METASTATIC LUNG CANCER. WILL GO HOME ON HOSPICE TOMORROW. SWALLOW EVAL TODAY. NECTAR THICK/PUREED DIET. IV S/L. MILLER CATH IN PLACE. COCCYX DRESSING. NEBS PRN. 1-2PA TO SIT AT EDGE OF BED.
--- NOTE | 2016-12-13 18:04 | NUR ---
PATIENT RESTING IN BED WITH GRANDDAUGHTER SITTING NEXT TO BED. NO NEEDS AT THIS TIME. CALL BUTTON IN REACH.
--- NOTE | 2016-12-13 18:26 | NUR ---
LAB IN FOR BLOOD DRAW. 3 PEOPLE TO HOLD ARMS. PATIENT TRYING TO PULL AT CATH. TRIED TO GET PATIENT TO DRINK OUT OF STRAW AND COULD NOT. SHE WAS ABLE TO EARLIER. USED SPOON TO FEED WATER. PATIENT REFSUED AFTER ONE SPOON. BED ALARM ON SIDE RAILS UP. CALL BUTTON IN REACH.
--- NOTE | 2016-12-13 19:42 | NUR ---
RECIEVED REPORT FROM DAY SHIFT NURSE. PT SLEEPING. NC IN PLACE. PULSE OX READING 98%. SPOUSE AT BEDSIDE. BLANKET, PILLOW, ICE WATER DELIVERED TO SPOUSE. HE DENIES FURTHER NEEDS. CALL GOLDSMITH IN REACH.
--- NOTE | 2016-12-13 21:07 | NUR ---
PT SLEEPING. REFILLED HUMIDIFICATION CHAMBER WITH STERILE WATER. PULSE OX READING 100%. SPOUSE AT BEDSIDE. CALL GOLDSMITH IN REACH.
--- NOTE | 2016-12-13 21:44 | NUR ---
REPOSITIONED PT TO L SIDE. OFFERED ATROPINE DROPS FOR SECRETIONS. MOIST COUGH AT TIMES. PT REFUSED. PT AND SPOUSE DENY NEEDS. CALL GOLDSMITH IN REACH. SUCTION AT BEDSIDE.
--- NOTE | 2016-12-13 21:57 | NUR ---
PT FOUND WITH O2 OFF. REPLACED O2. PT TOLD SPOUSE SHE WAS HAVING A HARD TIME BREATHING. PT REQUESTED FOR NEB TX. CALLED RT. PT AND SPOUSE DENY FURTHER NEEDS.
--- NOTE | 2016-12-13 22:13 | NUR ---
ASSISTED PT TO A MORE UPRIGHT POSITION. TURNED OFF NEB TX. RT IN TO ASSESS. PT DENIES FURTHER NEEDS. CALL GOLDSMITH IN REACH.
--- NOTE | 2016-12-13 22:50 | NUR ---
PT STATES SHE IS "SUFFOCATING." O2 IN THE 90S. ATIVAN ADMINISTERED.
--- NOTE | 2016-12-13 23:20 | NUR ---
PT'S GAVE HER A SIP OF THIN LIQUIDS. PT HAD COUGHING FIT AFTER SHE DRANK A SIP OF WATER. PT STATES "I CAN'T BREATHE." MORPHINE ADMINISTERED. AFTER MORPHINE ADMINISTERED PT CALMED DOWN, SHE STARTED TALKING ABOUT THE TV SHOW SHE WAS WATCHING. EDUCATED ON NECTAR THICK LIQUIDS. CALL GOLDSMITH IN REACH.
--- NOTE | 2016-12-13 23:26 | NUR ---
MIXED NECTAR THICK WATER. GAVE PT A FEW SIPS USING SPOON. PT TOLERATED WELL.
--- NOTE | 2016-12-13 23:45 | NUR ---
REPOSITIONED PT ON R SIDE. REMOVED OPTIFOAM THAT WAS ON SACRUM. SKIN IS RED ON BOTTOM BUT BLANCHABLE. WILL CONTINUE TO REPOSITION EVERY 2 HOURS. PERICARE PERFORMED. PT DENIES FURTHER NEEDS.
--- NOTE | 2016-12-14 01:23 | NUR ---
PT SLEEPING. SPOUSE AT BEDSIDE. O2 AT 100%. CALL GOLDSMITH IN REACH.
--- NOTE | 2016-12-14 02:22 | NUR ---
PT STATES SHE CANNOT BREATHE. O2 IN THE 90S, NC IN PLACE. ADMINISTERED ATIVAN AND MORPHINE. HYDRATION OFFERED. REPOSITIONED ON L SIDE. CALL GOLDSMITH IN REACH.
--- NOTE | 2016-12-14 03:15 | NUR ---
PT APPEARS TO BE IN LESS DISTRESS. SHE IS ASKING TO CALL HER DAUGHTER AND HER BROTHERS. I TOLD HER IT WAS 0300 IN THE MORNING AND THEY ARE PROBABLY ASLEEP. I ASSURED HER WE COULD CALL THEM IN THE MORNING. PT AGREES. SPOUSE DENIES NEEDS. CALL GOLDSMITH IN REACH.
--- NOTE | 2016-12-14 03:35 | NUR ---
MOIST COUGH HEARD. OFFERED PT ATROPINE TO DRY UP SECRETIONS, PT AGREED.
--- NOTE | 2016-12-14 04:27 | NUR ---
PT SLEEPING. SPOUSE AT BEDSIDE SLEEPING. NC IN PLACE. CALL GOLDSMITH IN REACH.
--- NOTE | 2016-12-14 05:18 | NUR ---
PT VERY RESTLESS. RIPPED HER GOWN OFF AND NC. STATES SHE IS HAVING A "PANIC ATTACK." CALLED DR. GUILLAUME. ADMINISTERED ANOTHER DOSE OF ATIVAN PER MD. REPOSITIONED PT ON R SIDE. PT SITTING UPRIGHT IN BED. HEEL PROTECTOR IN PLACE ON L FOOT. REDNESS NOTED ON L HEEL, PT STATES IT IS SORE. CALL GOLDSMITH IN REACH. SPOUSE DENIES NEEDS.
--- NOTE | 2016-12-14 05:58 | NUR ---
NURSE NOTIFIED RE BP.
--- NOTE | 2016-12-14 06:22 | NUR ---
PT SLEEPING UPRIGHT IN BED. CALL GOLDSMITH IN REACH. BED ALARM ON.
--- NOTE | 2016-12-14 06:32 | NUR ---
PT SLEPT ON AND OFF ALL NIGHT. ATIVAN ADMINISTERED MULTIPLE TIMES. MORPHINE ADMINISTERED X2. HAD TO CALL MD LAST NIGHT FOR EXTRA ATIVAN ORDER. REPOSITIONING PT ABOUT EVERY 2 HOURS. COCCYX RED BUT BLANCHABLE. REMOVED OPTIFOAM. PT D/C TODAY WITH HOSPICE.
--- NOTE | 2016-12-14 07:29 | NUR ---
PT SLEEPING DURING BEDSIDE REPORT. 7L [address] WILL ALLOW PT TO SLEEP. APPROACHED NURSE'S STATION DESK FOR COFFEE. REPORTED PT STILL SLEEPING. PT S/L. ANGELA IN PLACE. WILL TURN PT Q2H AND PRN.
--- NOTE | 2016-12-14 08:20 | NUR ---
patient resting in bed with eyes closed. states that she was up all night wanting to get out of bed. call button in reach no other needs at this time. reminded to call if need anything.
--- NOTE | 2016-12-14 08:39 | NUR ---
PTS CALLED NURSES STATION ABOUT 8, I WENT IN THE ROOM AND HE SAID HER OXYGEN AND PULSE WERE ALARMING AT 60. WHEN I ENTERED THE ROOM HER O2 WAS AT 84, HER NURSE GEORGE WAS BUSY IN ANOTHER ROOM SO I TOLD CHARGE NURSE ENRRIQUE AND SHE NOTIFIED RT.
--- NOTE | 2016-12-14 09:30 | NUR ---
FAXED CHART NOTES AND HOSPICE ORDERS TO [facility]. TALKED WITH KATHY ORTIZ FROM HOSPICE AND SHE STATES ONE OF THE NURSES WILL BE AT THE PT HOME APPROX 1300 TODAY TO ADMIT HER TO HOSPICE.
--- NOTE | 2016-12-14 09:45 | NUR ---
PATIENT IN BED. BED BATH ASSIST. ORAL CARE AND CATH CARE DONE. SKIN CARE DONE. REPOSITIONED ONTO LEFT SIDE. CLEAN LINENS. CALL BUTTON IN REACH. NO OTHER NEEDS AT THIS TIME.
[2016-12-14] MEDS ORDERED: FENTANYL1 EACH TD (10:06)
[2016-12-14] MEDS ORDERED: LORAZEPAM INT2 MG/ML PO (10:09)
--- NOTE | 2016-12-14 10:15 | NUR ---
TALKED WITH PT TONI VIA PHONE TO ASK AT WHAT TIME WOULD HE BE READY FOR CASI TO COME HOME. HE STATED ANYTIME. TOLD HIM I WOULD CALL THE AMBULANCE TO BRING HER HOME. HE WAS AGREEABLE TO THIS.
--- NOTE | 2016-12-14 13:13 | NUR ---
PT WELCOMED ME IN. SHE MENTIONED THAT HER LEGS WERE UNCOMFORTABLE AND THAT SHE IS A LITTLE CHILLY. I GOT HER A WARM BLANKET AND RN GEORGE WAS GOING TO HELP WITH HER LEGS AND PREP HER FOR TRANSFER HOME BY MEDICAL TRANSPORT ON HOSPICE. PRAYED WITH PT AND SHE SMILED AND THANKED ME
--- NOTE | 2016-12-14 19:37 | NUR ---
1050 FAXED ORDER FOR O2 AT 4 TO 10L WITH MASK PRN, TO IN HOME MEDICAL AND TO HOSPICE.
== END 2016-12-14 10:58 | disposition home or self-care (01) | DRG 194 ==
LOC: ED 13:57 → MS 17:15
PROVIDERS: ADMIT Internal Medicine
DX: J18.9 Pneumonia, unspecified organism (principal); J80 Acute respiratory distress syndrome; C34.92 Malignant neoplasm of unspecified part of left bronchus or lung; C34.91 Malignant neoplasm of unspecified part of right bronchus or lung; C78.7 Secondary malignant neoplasm of liver and intrahepatic bile duct; C78.00 Secondary malignant neoplasm of unspecified lung; C79.51 Secondary malignant neoplasm of bone; Z51.5 Encounter for palliative care; Z66 Do not resuscitate; Z85.3 Personal history of malignant neoplasm of breast; Z87.891 Personal history of nicotine dependence
CPT/HCPCS: 36600; 71010; 80053; 82803; 85025; 92610; 94640; 94762; J0696; J7040